=== PATIENT | female | born 2000 | race Caucasian/White ===

== ENCOUNTER 2024-07-07 06:44 | Outpatient (REF) | payer OTHER, SELFPAY ==
--- NOTE | ~2024-07-07 | US_ITS ---
CLINICAL HISTORY: NEW IUD INSERTION, CHECK POSITION OF IUD US pelvis transvaginal Comparison: None Findings: Transvaginal scanning performed. Anteverted uterus is 6.6 cm length. Normal myometrium. Endometrium 2.7 mm thickness. IUD noted within the endometrial cavity, along the uterine fundus and proximal body. Right ovary 2.8 x 1.8 x 1.8 cm. Left ovary 2.5 x 1.9 x 2.2 cm. Normal color Doppler of both ovaries. Spectral analysis not provided. No free fluid. IMPRESSION: No evidence of ovarian torsion. IUD in place. This document has been electronically signed by: Patrick Vail MD on 07/08/2024 05:43:01
== END 2024-07-07 06:45 | disposition home or self-care (01) ==
LOC: HO.UMASIMG 06:44
PROVIDERS: Visit Provider Family Medicine
DX: T83.32XA Displacement of intrauterine contraceptive device, initial encounter (principal)
CPT/HCPCS: 76830; 76856

== ENCOUNTER → 2024-07-07 10:30 | Outpatient (BNV) | payer OTHER, SELFPAY | PROVIDERS: Visit Provider Radiology Diagnostic Radiology | DX: Z30.430 Encounter for insertion of intrauterine contraceptive device (principal) | CPT/HCPCS: 76830; 76856 ==